=== PATIENT | female | born 1980 | race African-American/Black ===

== ENCOUNTER → 2020-12-30 | Day surgery (SDC) | payer OTHER | LOC: BICULT 12:29 | PROVIDERS: ATTEND Family Medicine | PROC: 0H9T3ZX Drainage of Right Breast, Percutaneous Approach, Diagnostic (ICD-10-PCS; principal; 2020-12-30) | DX: C50.111 Malignant neoplasm of central portion of right female breast (principal) | CPT/HCPCS: 19083; 88305; 88341; 88342 ==

== ENCOUNTER 2021-01-27 09:07 | Outpatient (CLI) | payer OTHER ==
[2021-01-27] MEDS ORDERED: Iopamidol 370 76% 100 ML VIAL ONE (13:40)
== END 2021-01-27 09:08 | disposition home or self-care (01) ==
LOC: CT 09:07
PROVIDERS: ATTEND Internal Medicine Hematology & Oncology
DX: C50.111 Malignant neoplasm of central portion of right female breast (principal); C18.8 Malignant neoplasm of overlapping sites of colon; R91.8 Other nonspecific abnormal finding of lung field
CPT/HCPCS: 71260; 74177; 78306; A9503

== ENCOUNTER 2021-03-20 11:52 | Outpatient (CLI) | payer OTHER ==
[2021-03-20 13:34] LABS: #Eosinphils 0.1 10x3/uL (0.0-0.5); #Monocytes 0.5 10x3/uL (0.0-1.1); #Neutrophils 3.6 10x3/uL (1.5-8.4); %Basophils 0.3 % (0.0-2.0); %Eosinophils 1.1 % (0.0-6.0); %Lymphocytes 36.9 % (18.0-47.0); %Monocytes 7.6 % (0.0-10.0); %Neutrophils 53.9 % (40.0-75.0); Hemoglobin 11.2 g/dL (12.0-15.5); Mean Corpuscular HGB CONC 30.3 g/dL (32.0-36.0); Mean Corpuscular Hemoglobin 25.8 pg (27.0-33.0); Mean Corpuscular Volume 85.3 fl (81.6-98.3); Mean Platelet Volume 9.4 fl (7.4-10.4); Platelet Count 418 10x3/uL (150-450); RBC Distribution Width 15.4 % (11.5-14.5); Red Blood Cell (RBC) Count 4.34 10x6/uL (3.90-5.03); White Blood Cell (WBC) Count 6.6 10x3/uL (3.5-10.5)
[2021-03-20 13:56] LABS: Anion Gap 13 mmol/L (10-20); BUN (Urea Nitrogen) 7 mg/dL (7.0-18.7); Calc. Creatinine Clearance 0 mL/min (70-130); Calcium 8.7 mg/dL (7.8-10.44); Carbon Dioxide 24 mmol/L (22-29); Chloride 107 mmol/L (98-107); Glucose 98 mg/dL (70-105); Potassium 4.2 mmol/L (3.5-5.1); Sodium 140 mmol/L (136-145)
[2021-03-21 12:10] LABS: SARS-CoV-2 PCR by NAA Not Detected (NotDetected)
== END 2021-03-20 11:53 | disposition home or self-care (01) ==
LOC: LABBT 11:52
PROVIDERS: ATTEND Specialist
DX: Z01.812 Encounter for preprocedural laboratory examination (principal); C50.811 Malignant neoplasm of overlapping sites of right female breast; Z20.822 Contact with and (suspected) exposure to COVID-19
CPT/HCPCS: 80048; 85025; U0003; U0005

== ENCOUNTER 2021-03-23 10:12 | Day surgery (SDC) | payer OTHER ==
[2021-03-20 11:18] VITALS: BMI 42.0
[2021-03-23] MEDS ORDERED: Ketorolac Tromethamine 30 MG/ML VIAL ONE (10:47)
[2021-03-23] MEDS ORDERED: Acetaminophen 500 MG TAB ONE (10:47)
[2021-03-23] MEDS ORDERED: PROPOFOL 40 ML ONE ×2 (11:59→13:25)
[2021-03-23] MEDS ORDERED: Fentanyl 100 MCG/2 ML VIAL ONE (11:59)
[2021-03-23] MEDS ORDERED: Xylocaine 1% w/ Epi 1:100K 10 ML VIAL ONE (12:05)
[2021-03-23] MEDS ORDERED: Bupivacaine 0.25% HCL 30 ML VIAL ONE (12:05)
[2021-03-23] MEDS ORDERED: ceFAZolin 2 GM/Dextrose 50 ML IVPB ONE (12:23)
[2021-03-23] MEDS ORDERED: Ondansetron PF 4 MG/2 ML Vial ONE (12:32)
[2021-03-23] MEDS ORDERED: diphenhydrAMINE 50 MG/ML VIAL ONE (12:32)
[2021-03-23] MEDS ORDERED: Lidocaine 1% PF 5 ML VIAL ONE (12:32)
[2021-03-23] MEDS ORDERED: PHENYLEPHRINE-NS 100 MCG/ML 10 ML SYRINGE ONE (12:32)
[2021-03-23] MEDS ORDERED: Iothalamate Meglumine 60% 50 ML VIAL FS ONE (13:21)
== END 2021-03-23 15:14 | disposition home or self-care (01) ==
LOC: SDC 10:12
PROVIDERS: ATTEND Specialist
PROC: 0JH63WZ Insertion of Totally Implantable Vascular Access Device into Chest Subcutaneous Tissue and Fascia, Percutaneous Approach (ICD-10-PCS; principal; 2021-03-23)
PROC: 02HV33Z Insertion of Infusion Device into Superior Vena Cava, Percutaneous Approach (ICD-10-PCS; principal; 2021-03-23)
DX: C50.811 Malignant neoplasm of overlapping sites of right female breast (principal); C78.7 Secondary malignant neoplasm of liver and intrahepatic bile duct; C78.00 Secondary malignant neoplasm of unspecified lung; Z17.1 Estrogen receptor negative status [ER-]; Z85.038 Personal history of other malignant neoplasm of large intestine; Z87.891 Personal history of nicotine dependence; Z79.899 Other long term (current) drug therapy
CPT/HCPCS: 71045; C1788; J0690; J1200; J1642; J1885; J2405; J2704; J3010; Q9961-U8; S0020

== ENCOUNTER 2021-04-09 08:48 | Outpatient (CLI) | payer OTHER | END 2021-04-09 08:49 | disposition home or self-care (01) | LOC: CT 08:48 | PROVIDERS: ATTEND Internal Medicine Hematology & Oncology | DX: C50.111 Malignant neoplasm of central portion of right female breast (principal); C18.8 Malignant neoplasm of overlapping sites of colon; C79.51 Secondary malignant neoplasm of bone | CPT/HCPCS: 71260; 74177; 78306; A9503 ==

== ENCOUNTER 2021-06-22 09:00 | Outpatient (CLI) | payer OTHER ==
[2021-06-22] MEDS ORDERED: Iopamidol 370 76% 100 ML VIAL ONE (09:19)
== END 2021-06-22 09:01 | disposition home or self-care (01) ==
LOC: CT 09:00
PROVIDERS: ATTEND Internal Medicine Hematology & Oncology
DX: C50.111 Malignant neoplasm of central portion of right female breast (principal); C79.51 Secondary malignant neoplasm of bone
CPT/HCPCS: 71260; 74177; 78306; A9503; Q9967

== ENCOUNTER 2021-09-11 08:33 | Outpatient (CLI) | payer OTHER | END 2021-09-11 08:34 | disposition home or self-care (01) | LOC: CT 08:33 | PROVIDERS: ATTEND Internal Medicine Hematology & Oncology | DX: C79.51 Secondary malignant neoplasm of bone (principal); C18.8 Malignant neoplasm of overlapping sites of colon; C50.919 Malignant neoplasm of unspecified site of unspecified female breast; C78.00 Secondary malignant neoplasm of unspecified lung; C78.7 Secondary malignant neoplasm of liver and intrahepatic bile duct | CPT/HCPCS: 78306; A9503 ==

== ENCOUNTER 2021-09-15 09:58 | Outpatient (CLI) | payer OTHER ==
[~2021-09-15 09:58] MED LIST: Iopamidol 370 76% 100 ML VIAL ONE
== END 2021-09-15 09:59 | disposition home or self-care (01) ==
LOC: CT 09:58
PROVIDERS: ATTEND Internal Medicine Hematology & Oncology
DX: C50.911 Malignant neoplasm of unspecified site of right female breast (principal); C50.919 Malignant neoplasm of unspecified site of unspecified female breast; C79.51 Secondary malignant neoplasm of bone; C78.7 Secondary malignant neoplasm of liver and intrahepatic bile duct; R91.8 Other nonspecific abnormal finding of lung field; C78.00 Secondary malignant neoplasm of unspecified lung; R23.4 Changes in skin texture; R60.0 Localized edema; R59.0 Localized enlarged lymph nodes; M89.9 Disorder of bone, unspecified
CPT/HCPCS: 71260; 74177; Q9967